=== PATIENT | male | born 1975 | race Caucasian/White ===

== ENCOUNTER 2017-01-16 17:52 | Emergency (ER) | payer OTHER ==
[2017-01-16 18:08] VITALS: BP 145/70; PULSE 70; RESP 16; TEMP 97.5; O2SAT 98
[2017-01-16] MEDS ORDERED: Lidocaine 5% Patch TD STA (18:13)
[2017-01-16] MEDS ORDERED: Lidocaine 5% Patch TD ONE (18:18)
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
== END 2017-01-16 18:55 | disposition home or self-care (01) ==
LOC: C.ER 17:52
DX: M54.5 Low back pain (principal); V89.2XXA Person injured in unspecified motor-vehicle accident, traffic, initial encounter
CPT/HCPCS: 72100; 96372; 99283; J1885